=== PATIENT | female | born 1990 | race Caucasian/White ===

== ENCOUNTER 2022-12-06 16:48 | Emergency (ER) | payer OTHER, SELFPAY ==
[2022-12-06 16:51] VITALS: BP 122/84; PULSE 80; RESP 18; TEMP 37.9; O2SAT 98; BMI 22.7
--- NOTE | 2022-12-06 17:29 | CT_ITS ---
The [address] [address] Patient Name: MALIA MCDONNELL MRN: [id number] date: 1990 Sex: F Assigned Patient Location: ER Current Patient Location: ER Accession/Order Number: [id number] Exam Date: 12/06/2022 17:38 Report Date: 12/06/2022 18:35 At the request of: DEYANIRA ALVARADO Procedure: CT head/brain wo con EXAMINATION: CT head/brain wo con HISTORY: Headache COMPARISON: None. TECHNIQUE: CT scan of the head was performed without IV contrast. CT dose reduction technique was used, including Automated Exposure Control. FINDINGS: There are no extra-axial fluid collections. There is no mass effect or midline shift. The cerebral ventricles and sulci are normal. The brain demonstrates normal attenuation. Basal cisterns are patent. Bilateral orbits, paranasal sinuses and mastoid air cells are patent. No skull base fracture. CT/CT head/brain wo con IMPRESSION: No acute intracranial process. Electronically authenticated by: CYNTHIA REYNOLDS Date: 12/06/2022 18:35
--- NOTE | 2022-12-06 17:31 | ED_ITS ---
HPI - General Adult General Chief complaint: Headache Stated complaint: HEADACHE Time Seen by Provider: 12/06/22 17:04 Source: patient Mode of arrival: walk-in History of Present Illness HPI narrative: patient is a 32-year-old female who presents to the emergency department for persistent headache. Patient states five days ago she developed pain across the bilateral temples and three days ago this pain improved and has now localized to the base of the skull on the right side. She denies any posterior midline cervical pain. She is able to move her neck. She has had no objective fevers, upper respiratory symptoms, cough, congestion. She denies a possibility of . She was seen at urgent care yesterday and was treated with Toradol and prescribed prednisone and tizanidine. She states she has not had any significant improvement with these medications. She denies any peripheral paresthesias. She has had no visual changes. No injuries or traumas to the head. she has no history of chronic headaches. Related Data Home Medications Medication Instructions Recorded Confirmed prednisone 50 mg tablet 50 mg PO DAILY 12/06/22 12/06/22 tizanidine 4 mg capsule 4 mg PO Q8H 12/06/22 12/06/22 Previous Rx's Medication Instructions Recorded ketorolac 10 mg tablet 10 mg PO TID PRN pain #10 tabs 12/06/22 orphenadrine citrate 100 mg 100 mg PO BID PRN muscle pain #14 12/06/22 tablet,extended release tabs Allergies Allergy/AdvReac Type Severity Reaction Status Date / Time No Known Drug Allergies Allergy Verified 12/06/22 16:51 Review of Systems ROS Constitutional Denies: fever or chills Ears, nose, mouth, and throat Denies: throat pain, neck pain or nasal congestion Cardiovascular Denies: chest pain Respiratory Denies: shortness of breath or cough Gastrointestinal Denies: nausea or vomiting Musculoskeletal Denies: back pain Integumentary/Breast Denies: rash Neurological Reports: headache Hematologic/Lymphatic Denies: easy bruising Allergic/Immunologic Denies: hives PFSH [facility] Social History Smoking status: Light tobacco smoker Exam Narrative Exam Narrative: Gen.: Awake, alert, in no distress Head: Normocephalic, atraumatic ENT: Moist mucous membranes, no nuchal rigidity, no meningismus. Mild tenderness at the right base of the skull at the superior paracervical muscles. Normal range of motion at the neck. Bilateral tympanic membranes clear, no pharyngeal erythema Respiratory: No respiratory distress, lungs clear bilaterally Cardio: Regular rate and rhythm Extremities: Moves extremities equally, no injuries noted Psych: Normal mood and affect Neuro: No focal neuro deficit; clear speech, no photophobia Skin: Warm, dry, intact Constitutional Vital Signs, click to edit/add: Last Vital Signs Temp 100.2 F 12/06/22 16:51 Pulse 80 12/06/22 16:51 Resp 18 12/06/22 16:51 BP 122/84 12/06/22 16:51 Pulse Ox 98 12/06/22 16:51 O2 Del Method Room Air 12/06/22 16:51 Course Vital Signs Vital signs: Vital Signs Temperature 100.2 F 12/06/22 16:51 Pulse Rate 80 12/06/22 16:51 Respiratory Rate 18 12/06/22 16:51 Blood Pressure 122/84 12/06/22 16:51 Pulse Oximetry 98 12/06/22 16:51 Oxygen Delivery Method Room Air 12/06/22 16:51 Temperature 100.2 F 12/06/22 16:51 Pulse Rate 80 12/06/22 16:51 Respiratory Rate 18 12/06/22 16:51 Blood Pressure 122/84 12/06/22 16:51 Pulse Oximetry 98 12/06/22 16:51 Oxygen Delivery Method Room Air 12/06/22 16:51 Medical Decision Making MDM Narrative Medical decision making narrative: patient with negative Covid, negative strep screens. She has no nuchal rigidity or meningismus. CT of the brain is unremarkable. Patient reevaluated by attending physician, she appears well-hydrated and nontoxic with no focal neuro deficits. Exam is consistent with muscloskeletal pain to the back of the head/neck. she will be started on NSAIDs, she is instructed to discontinue the tizanidine and I will prescribe a different muscle relaxant for her. Return to the Emergency Room if symptoms change or worsen. Medical Records Medical records reviewed: Yes I reviewed the patient's medical records Lab Data Lab results reviewed: Yes I reviewed the patient's lab results Labs: Lab Results 12/06/22 12/06/22 Range/Units 17:18 17:22 SARS-CoV-2 (PCR) Negative (NEGATIVE) Streptococcus Screen Negative Imaging Data CT scan - head: Attestation: I have reviewed the pertinent imaging results. Radiologist's impression: Procedure: CT head/brain wo con EXAMINATION: CT head/brain wo con HISTORY: Headache COMPARISON: None. TECHNIQUE: CT scan of the head was performed without IV contrast. CT dose reduction technique was used, including Automated Exposure Control. FINDINGS: There are no extra-axial fluid collections. There is no mass effect or midline shift. The cerebral ventricles and sulci are normal. The brain demonstrates normal attenuation. Basal cisterns are patent. Bilateral orbits, paranasal sinuses and mastoid air cells are patent. No skull base fracture. IMPRESSION: No acute intracranial process. Electronically authenticated by: CYNTHIA REYNOLDS Date: 12/06/2022 18:35 Discharge Plan Discharge Chief Complaint: Headache Clinical Impression: Headache Patient Disposition: Home, Self-Care Time of Disposition Decision: 18:53 Condition: Good Prescriptions / Home Meds: New ketorolac 10 mg tablet 10 mg PO TID PRN (Reason: pain) Qty: 10 0RF orphenadrine citrate 100 mg tablet extended release 100 mg PO BID PRN (Reason: muscle pain) Qty: 14 0RF No Action prednisone 50 mg tablet 50 mg PO DAILY tizanidine 4 mg capsule 4 mg PO Q8H Instructions: Acute Headache (ED) Additional Instructions: Stop tizanidine, you can take the prednisone with ketorolac and orphenadrine (Norflex) Stand Alone Forms: Portal Instructions Referrals: OLU WOODY [Primary Care Provider] - 1 week
[2022-12-06 17:37] LABS: Internal Control Within Normal Limits; Strep A Antigen Screen Negative
[2022-12-06 17:39] LABS: SARS-CoV-2 Ag NEGATIVE (NEGATIVE)
[2022-12-06] MEDS: KETOROLAC TROMETHAMINE 60 MG/2 ML VIAL IM (17:53)
[2022-12-06] MEDS: ORPHENADRINE 60 MG/ 2 ML VIAL IM (17:53)
[2022-12-06] MEDS: BUTALB/ACETAMINOPHEN/CAFFEINE 50-325-40MG TABLET 1 TAB PO (17:54)
[2022-12-07 15:19] LABS: SARS-CoV-2 NAA NOT DETECTED (NOT DETECTE)
== END 2022-12-06 19:07 | disposition home or self-care (01) ==
PROVIDERS: Physician Assistant; Emergency Provider Emergency Medicine Emergency Medical Services; PCP Family Medicine
DX: R51.9 Headache, unspecified (principal); Z79.899 Other long term (current) drug therapy; F17.210 Nicotine dependence, cigarettes, uncomplicated; Z20.822 Contact with and (suspected) exposure to COVID-19
CPT/HCPCS: 70450; 87070; 87635; 87811; 87880; 96372; 99284